=== PATIENT | male | born 1970 | race Caucasian/White ===

== ENCOUNTER 2018-11-20 17:49 | Emergency (ER) | payer OTHER ==
[~2018-11-20] VITALS: Ht 195.6 cm; Wt 97.0 kg
[2018-11-20 17:56] VITALS: Ht 195.6 cm; Wt 97.0 kg
[2018-11-20] MEDS ORDERED: PIPER-TAZO 3.375 GM IV (PMX) 100 ML IVPB STA (17:56)
[2018-11-20] MEDS ORDERED: VANCOMYCIN 1 GM (PMX) 250 ML IVPB STA (17:56)
--- NOTE | 2018-11-20 18:01 | ERD ---
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 He is smokes, denies drinking, does IV drug Past history/surgical history: None ROS All systems reviewed and are negative except as per history of present illness. Medications Home Meds Reported Medications Amphet Vll-Jnfnts-P-Amphet (Adderall) Unknown Strength Tablet, 1 TAB PO DAILY, TAB 11/20/18 Buprenorphine Hcl-Naloxone Hcl (Suboxone SL) 8-2 Mg Film, 1 FILM SL NEEDED, FILM 11/20/18 Allergies Allergies: Coded Allergies: No Known Allergy (Unverified , 11/20/18) Physical Exam Vitals Vital Signs Date Temp Pulse Resp B/P (MAP) Pulse Ox O2 O2 Flow FiO2 Time Delivery Rate 11/20/18 98.4 87 20 109/79 97 Room Air 21:24 (89) 11/20/18 99.0 94 20 114/71 94 Room Air 19:13 (85) 11/20/18 81 20 120/71 94 Room Air 18:34 (87) 11/20/18 102.2 129 18 149/78 91 17:56 (101) Physical Exam Const: No acute distress. Head: Atraumatic. Eyes: Normal Conjunctiva. ENT: Normal External Ears, Nose and Mouth. Neck: Full range of motion. No meningismus. Resp: Clear to auscultation bilaterally. Cardio: Regular tachycardic Abd: Soft, non distended, normal bowel sounds, non tender. Skin: No petechiae or rashes. Back: No midline or flank tenderness. Ext: Left hand is with minimal edema, no crepitus, minimal tender Neur: Awake and alert. No focal deficit Psych: Normal Mood and Affect. Result Diagram: 11/20/18 1824 11/20/18 1824 Results 24 hrs Laboratory Tests Test 11/20/18 18:05 11/20/18 18:24 11/20/18 18:28 Urine Color [place]IRAG Urine Clarity SLIGHTLY CLOUDY Urine pH 5.0 Urine Specific [place] 1.027 Urine Ketones TRACE mg/dL Urine Nitrite NEGATIVE mg/dL Urine Bilirubin NEGATIVE mg/dL Urine Urobilinogen 1+ mg/dL Urine Leukocyte Esterase NEGATIVE Melly/ul Urine Microscopic RBC 1 /HPF Urine Microscopic WBC 1 /HPF Urine Squamous Epithelial Cells FEW /HPF Urine Mucus MANY /HPF Urine Hemoglobin NEGATIVE mg/dL Urine Glucose NEGATIVE mg/dL Urine Total Protein NEGATIVE mg/dl Urine Opiates Screen Positive Urine Barbiturates Negative Urine Amphetamines Screen POSITIVE Urine Benzodiazepines Screen Negative Urine Cocaine Screen Negative Urine Cannabinoids Negative White Blood Count 13.8 10^3/ul Red Blood Count 3.71 10^6/ul Hemoglobin 11.4 g/dl Hematocrit 35.1 % Mean Corpuscular Volume 94.6 fl Mean Corpuscular Hemoglobin 30.7 pg Mean Corpuscular 32.5 g/dl Hemoglobin Concent Red Cell Distribution Width 12.7 % Platelet Count 201 10^3/UL Mean Platelet Volume 10.3 fl Immature Granulocytes % 0.400 % Neutrophils % % Lymphocytes % % Monocytes % % Eosinophils % % Basophils % % Nucleated Red Blood Cells % 0.0 /100WBC Immature Granulocytes # 0.050 10^3/ul Neutrophils # 10^3/ul Lymphocytes # 10^3/ul Monocytes # 10^3/ul Eosinophils # 10^3/ul Basophils # 10^3/ul Nucleated Red Blood Cells # 10^3/ul Prothrombin Time 14.0 Sec Prothrombin Time Ratio 1.1 INR International 1.07 Normalized Ratio Activated Partial Thromboplast 26.4 Sec Time Sodium Level 138 mmol/L Potassium Level 4.0 mmol/L Chloride Level 103 mmol/L Carbon Dioxide Level 27 mmol/L Anion Gap 8 Blood Urea Nitrogen 16 mg/dl Creatinine 0.91 mg/dl Est Glomerular Filtrat > 60 mL/min Rate mL/min Glucose Level 162 mg/dl Calcium Level 9.4 mg/dl Total Bilirubin 0.9 mg/dl Direct Bilirubin 0.00 mg/dl Indirect Bilirubin 0.9 mg/dl Aspartate Amino 62 IU/L Transf (AST/SGOT) Alanine 109 IU/L Aminotransferase (ALT/SGPT) Alkaline Phosphatase 107 IU/L Troponin I < 0.012 ng/ml Total Protein 7.9 g/dl Albumin 3.7 g/dl Globulin 4.20 g/dl Albumin/Globulin Ratio 0.88 Ethyl Alcohol Level < 10.0 mg/dl POC Venous Lactate 1.6 mmol/L Current Medications Medications Dose Sig/Jorge A Start Time Status Last (Trade) Ordered Route PRN Stop Time Admin Dose Reason Admin Vancomycin 250 ml @ ONCE STAT 11/20/18 DC 11/20/18 HCl 125 mls/hr IVPB 17:56 19:12 11/20/18 19:55 Piperacillin 100 ml @ ONCE STAT 11/20/18 DC 11/20/18 Sod/ 200 mls/hr IVPB 17:56 18:28 Tazobactam 11/20/18 18:25 Sod Sodium 2,910 ml @ BOLUS X1 11/20/18 DC 11/20/18 Chloride 2,910 mls/hr ONCE IV 18:30 18:28 11/20/18 19:29 Sodium 1,000 ml @ Q10H IV 11/20/18 Chloride 100 mls/hr 20:44 IV Flush 3 ml PER 11/20/18 (NS 3 ml) PROTOCOL IV 21:00 Ondansetron 4 mg Q6H PRN 11/20/18 HCl (Zofran IV 21:00 Inj) NAUSEA/VOMITI NG 650 mg Q6H PRN 11/20/18 Acetaminophen PO .PAIN 1-3 21:00 (Tylenol OR TEMP Tab) 1 tab Q6H PRN 11/20/18 Acetaminophen PO .MOD PAIN 21:00 / 4-6 Hydrocodone Bitart ([place] (5/325)) 2 tab Q6H PRN 11/20/18 Acetaminophen PO .SEVERE 21:00 / PAIN 7-10 Hydrocodone Bitart ([place] (5/325)) Albuterol 2.5 mg Q2H RESP 11/20/18 (Proventil THERAPY PRN 21:00 0.083% ([place])) NEB SHORTNESS OF BREATH Piperacillin 100 ml @ Q6H IVPB 11/21/18 Sod/ 200 mls/hr 00:00 Tazobactam Sod Vancomycin VANCOMYCIN PER 11/20/18 HCl (Vanco PER PHARMACY PROTOCOL XX 21:00 Iv Per Pharmacy) Vancomycin 250 ml @ ONCE ONCE 11/20/18 HCl 125 mls/hr IVPB 21:30 11/20/18 23:29 250 ml @ Q12H IVPB 11/21/18 Vancomycin/So 83.333 mls/ 07:00 dium hr Chloride VANCO TR ONCE ONCE 11/22/18 Miscellaneous XX 06:00 11/22/18 06:01 Information (*Rx Drug Level Order Reminder*) Procedures/MDM [place] [id number] Radiology Main Line: [phone] DIAGNOSTIC IMAGING REPORT Patient: RAUL REDDY : 1970 Age: 48 Sex: M MR #: [id number] DOS: 11/20/18 1756 Ordering MD: MARIA ESTHER TANG MD Location: E/R Room/Bed: PROCEDURE: XR Chest. CLINICAL INDICATION: Possible Sepsis TECHNIQUE: Single frontal view of the chest was obtained. COMPARISON: None available FINDINGS: The cardiomediastinal silhouette is normal size. Pulmonary vasculature is within normal limits. There is mild reticulonodular appearing densities through both lungs. There is mild aortic calcification.. No signs of pleural fluid or pneumothorax are seen. The osseous structures and soft tissues are unremarkable. IMPRESSION: 1. Mild aortic calcification. 2. Reticulonodular appearing densities through both lungs. This may reflect atypical infection, or other inflammatory process. RPTAT: DD .Maria Esther Valera MD, MD Date Time Electronically viewed and signed by .Maria Esther Valera MD, MD on 11/20/2018 19:10 .T/ CC: MARIA ESTHER TANG MD [id number] EKG: Read by emergency physician Rate/Rhythm: Sinus tachycardia 120 beats/min QRS, ST, T-waves: No ST elevation, no T inversion Impression: Abnormal EKG MEDICAL MAKING DECISION: The patient is a 48-year-old male, presenting with acute SIRS, acute left hand cellulitis, substance abuse He was treated with normal saline 30 mm/kg IV, Zosyn IV, vancomycin IV empirically The differential diagnoses considered include but are not limited to cellulitis, abscess, pneumonia, cystitis, endocarditis Departure Diagnosis: Primary Impression: SIRS (systemic inflammatory response syndrome) Additional Impressions: Cellulitis of left hand Anemia Substance abuse Condition: Stable Comments I discussed the findings with the patient. I notified the patient with at 8:10p via [employer] , who was made aware of the lab, the treatment, the patient condition, he does not require hand surgeon consultation. The patient is admitted to [facility] Disclaimer: Inadvertent spelling and grammatical errors are likely due to EHR/dictation software use and do not reflect on the overall quality of patient care. Also, please note that the electronic time recorded on this note does not necessarily reflect the actual time of the patient encounter. DRAKE RUIZ MD Nov 20, 2018 18:01
[2018-11-20] MEDS ORDERED: SOD CHLORIDE 0.9% IV ONE (18:30)
[2018-11-20] MEDS ORDERED: BUPR1FIL3 SL (19:02)
[2018-11-20] MEDS ORDERED: DEXT10TA9 PO (19:03)
[2018-11-20] MEDS ORDERED: SOD CHLORIDE 0.9% 1,000 ML IV SCH (20:44)
[2018-11-20] MEDS ORDERED: ACETAMINOPHEN 325 MG TAB PO PRN (21:00)
[2018-11-20] MEDS ORDERED: ALBUTEROL 0.083% (NEB) 2.5 MG/3 ML AMP NEB PRN (21:00)
[2018-11-20] MEDS ORDERED: NACL 0.9% 3 ML SYG IV SCH (21:00)
[2018-11-20] MEDS ORDERED: HYDROCODONE/APAP (5/325) TAB PO PRN ×2 (21:00)
[2018-11-20] MEDS ORDERED: VANCOMYCIN IV PER PHARMACY XX SCH (21:00)
[2018-11-20] MEDS ORDERED: ONDANSETRON 4 MG INJ IV PRN (21:00)
[2018-11-20 21:24] VITALS: BP 109/79; PULSE 87; RESP 20
[2018-11-20] MEDS ORDERED: VANCOMYCIN 1 GM in 250 ML IVPB ONE (21:30)
--- NOTE | 2018-11-20 22:31 | HP ---
Date/Time of Note Date/Time of Note DATE: 11/20/18 TIME: 22:30 Assessment/Plan VTE Prophylaxis Pharmacological prophylaxis: NA/contraindicated Pharm contraindication: other (pt left AMA before seen) Lines/Catheters IV [facility] [place] Assessment/Plan Assessment/Plan pt left AMA before seen Result Diagram: 11/20/18 1824 11/20/18 1824 Results 24hrs Laboratory Tests Test 11/20/18 18:05 11/20/18 18:24 11/20/18 18:28 Urine Color CHIRAG Urine Clarity SLIGHTLY CLOUDY A Urine pH 5.0 Urine Specific [place] 1.027 Urine Ketones TRACE A Urine Nitrite NEGATIVE Urine Bilirubin NEGATIVE Urine Urobilinogen 1+ H Urine Leukocyte Esterase NEGATIVE Urine Microscopic RBC 1 Urine Microscopic WBC 1 Urine Squamous FEW Epithelial Cells Urine Mucus MANY A Urine Hemoglobin NEGATIVE Urine Glucose NEGATIVE Urine Total Protein NEGATIVE Urine Opiates Screen Positive Urine Barbiturates Negative Urine Amphetamines Screen POSITIVE Urine Benzodiazepines Screen Negative Urine Cocaine Screen Negative Urine Cannabinoids Negative White Blood Count 13.8 H Red Blood Count 3.71 L Hemoglobin 11.4 L Hematocrit 35.1 L Mean Corpuscular Volume 94.6 Mean Corpuscular Hemoglobin 30.7 Mean Corpuscular 32.5 Hemoglobin Concent Red Cell Distribution Width 12.7 Platelet Count 201 Mean Platelet Volume 10.3 Immature Granulocytes % 0.400 Neutrophils % Segmented Neutrophils 78 H % (Manual) Band Neutrophils % (Manual) 13 H Lymphocytes % Lymphocytes % (Manual) 6 L Monocytes % Monocytes % (Manual) 1 Eosinophils % Eosinophils % (Manual) 2 Basophils % Nucleated Red Blood Cells % 0.0 Immature Granulocytes # 0.050 H Neutrophils # Neutrophils # (Manual) 11.0 H Band Neutrophils # 1.7 H Lymphocytes (Manual) 0.8 Lymphocytes # Monocytes # Monocytes # (Manual) 0.1 L Eosinophils # Basophils # Nucleated Red Blood Cells # Platelet Estimate NORMAL Prothrombin Time 14.0 Prothrombin Time Ratio 1.1 INR International 1.07 Normalized Ratio Activated Partial Thromboplast 26.4 Time Sodium Level 138 Potassium Level 4.0 Chloride Level 103 Carbon Dioxide Level 27 Anion Gap 8 Blood Urea Nitrogen 16 Creatinine 0.91 Est Glomerular Filtrat > 60 Rate mL/min Glucose Level 162 Calcium Level 9.4 Total Bilirubin 0.9 Direct Bilirubin 0.00 Indirect Bilirubin 0.9 Aspartate Amino 62 H Transf (AST/SGOT) Alanine 109 H Aminotransferase (ALT/SGPT) Alkaline Phosphatase 107 Troponin I < 0.012 Total Protein 7.9 Albumin 3.7 Globulin 4.20 H Albumin/Globulin Ratio 0.88 Ethyl Alcohol Level < 10.0 H POC Venous Lactate 1.6 HPI/ROS Admit Date/Time Admit Date/Time Hx of Present Illness pt left AMA before seen PMH/Family/Social Past Medical History Coded Allergies: No Known Allergy (Unverified , 11/20/18) Social History Smoking Status: Never smoker Exam/Review of Systems Vital Signs Vitals Vital Signs Date Temp Pulse Resp B/P (MAP) Pulse Ox O2 O2 Flow FiO2 Time Delivery Rate 11/20/18 98.4 87 20 109/79 97 Room Air 21:24 (89) JAQUAN EVERETT MD Nov 20, 2018 22:31
--- NOTE | 2018-11-20 22:31 | DS ---
Date/Time of Note Date/Time of Note DATE: 11/20/18 TIME: 22:31 Discharge Summary Admission/Discharge Info Admit Date/Time Discharge Date/Time Discharge Diagnosis pt left AMA before seen Patient Condition: Serious Hx of Present Illness Hospital Course pt left AMA before seen Home Meds Reported Medications Amphet Xeb-Bcgrea-B-Amphet (Adderall) Unknown Strength Tablet, 1 TAB PO DAILY, TAB 11/20/18 Buprenorphine Hcl-Naloxone Hcl (Suboxone SL) 8-2 Mg Film, 1 FILM SL NEEDED, FILM 11/20/18 Primary Care Provider Care Physician No Primary Pending Labs Laboratory Tests Test 11/20/18 18:05 11/20/18 18:24 11/20/18 18:28 Urine Color [place]IR[place] (YELLOW) Urine Clarity SLIGHTLY CLOUDY (CLEAR) Urine pH 5.0 (5.0-9.0) Urine Specific 1.027 (1.003-1.030) [place] Urine Ketones TRACE mg/dL (NEGATIVE) Urine Nitrite NEGATIVE mg/dL (NEGATIVE) Urine Bilirubin NEGATIVE mg/dL (NEGATIVE) Urine Urobilinogen 1+ mg/dL (NEGATIVE) Urine Leukocyte NEGATIVE Melly/ul Esterase Urine Microscopic 1 /HPF (0-5) RBC Urine Microscopic 1 /HPF (0-5) WBC Urine Squamous FEW /HPF (FEW) Epithelial Cells Urine Mucus MANY /HPF (NONE SEEN) Urine Hemoglobin NEGATIVE mg/dL (NEGATIVE) Urine Glucose NEGATIVE mg/dL (NEGATIVE) Urine Total NEGATIVE Protein mg/dl (NEGATIVE) Urine Opiates Positive (NEGATIVE) Screen Urine Barbiturates Negative (NEGATIVE) Urine Amphetamines POSITIVE (NEGATIVE) Screen Urine Negative (NEGATIVE) Benzodiazepines Screen Urine Cocaine Negative (NEGATIVE) Screen Urine Cannabinoids Negative (NEGATIVE) White Blood Count 13.8 10^3/ul (4.8-10.8) Red Blood Count 3.71 10^6/ul (4.70-6.10 ) Hemoglobin 11.4 g/dl (14.0-18.0) Hematocrit 35.1 % (42.0-52.0) Mean Corpuscular 94.6 Volume fl (82.0-101.0) Mean Corpuscular 30.7 Hemoglobin pg (29.0-33.0) Mean Corpuscular 32.5 Hemoglobin Concent g/dl (32.0-37.0) Red Cell 12.7 % (11.5-14.5) Distribution Width Platelet Count 201 10^3/UL (140-415) Mean Platelet 10.3 fl (7.4-10.4) Volume Immature 0.400 Granulocytes % % (0.001-0.429) Neutrophils % % (39.0-77.0) Segmented 78 % (39-77) Neutrophils % (Manual) Band Neutrophils % 13 % (0-4) (Manual) Lymphocytes % % (15.0-51.0) Lymphocytes % 6 % (15-51) (Manual) Monocytes % % (0.0-11.0) Monocytes % 1 % (0-11) (Manual) Eosinophils % % (0.0-7.0) Eosinophils % 2 % (0-7) (Manual) Basophils % % (0.0-2.0) Nucleated Red Blood 0.0 Cells % /100WBC (0.0-0.0) Immature 0.050 Granulocytes # 10^3/ul (0.0-0.031 ) Neutrophils # 10^3/ul (1.6-7.5) Neutrophils # 11.0 (Manual) 10^3/ul (1.6-7.5) Band Neutrophils # 1.7 10^3/ul (0.0-0.6) Lymphocytes 0.8 (Manual) 10^3/ul (0.8-2.9) Lymphocytes # 10^3/ul (0.8-2.9) Monocytes # 10^3/ul (0.3-0.9) Monocytes # 0.1 (Manual) 10^3/ul (0.3-0.9) Eosinophils # 10^3/ul (0.0-0.5) Basophils # 10^3/ul (0.0-0.1) Nucleated Red Blood 10^3/ul (0.0-0.0) Cells # Platelet Estimate NORMAL Prothrombin Time 14.0 Sec (11.9-14.9) Prothrombin Time 1.1 Ratio INR International 1.07 Normalized Ratio Activated 26.4 Partial Thromboplas Sec (23.0-35.0) t Time Sodium Level 138 mmol/L (135-144) Potassium Level 4.0 mmol/L (3.5-5.1) Chloride Level 103 mmol/L (97-110) Carbon Dioxide 27 mmol/L (21-31) Level Anion Gap 8 (5-13) Blood Urea 16 mg/dl (7-20) Nitrogen Creatinine 0.91 mg/dl (0.61-1.24) Est Glomerular > 60 mL/min (>60) Filtrat Rate mL/min Glucose Level 162 mg/dl (70-220) Calcium Level 9.4 mg/dl (8.4-10.2) Total Bilirubin 0.9 mg/dl (0.2-1.3) Direct Bilirubin 0.00 mg/dl (0.00-0.20) Indirect Bilirubin 0.9 mg/dl (0-1.1) Aspartate Amino 62 IU/L (15-46) Transf (AST/SGOT) Alanine 109 IU/L (13-69) Aminotransferase (A LT/SGPT) Alkaline 107 IU/L (42-121) Phosphatase Troponin I < 0.012 ng/ml (0.000-0.120 ) Total Protein 7.9 g/dl (6.1-8.1) Albumin 3.7 g/dl (3.3-4.9) Globulin 4.20 g/dl (1.3-3.2) Albumin/Globulin 0.88 Ratio Ethyl Alcohol < 10.0 mg/dl (0-0) Level POC Venous Lactate 1.6 mmol/L (0.5-2.0) JAQUAN EVERETT MD Nov 20, 2018 22:31
[2018-11-21] MEDS ORDERED: PIPER-TAZO 3.375 GM IV (PMX) 100 ML IVPB SCH
[2018-11-21] MEDS ORDERED: VANCOMYCIN 1.25 GM/NS 250 ML 250 ML IVPB SCH (07:00)
== END 2018-11-20 21:40 | disposition left against medical advice (07) ==
LOC: E/R 17:49
DX: L03.114 Cellulitis of left upper limb (principal); R65.10 Systemic inflammatory response syndrome (SIRS) of non-infectious origin without acute organ dysfunction; D64.9 Anemia, unspecified; F11.10 Opioid abuse, uncomplicated; R50.9 Fever, unspecified
CPT/HCPCS: 71045; 80053; 80307; 81001; 83605; 84484; 85025; 85610; 85730; 87040; 87086; 93005; 96374; 96375; J2543; J3370; J7030; Z7502; 81003